=== PATIENT | female | born 1970 | race Two or more races ===

== ENCOUNTER → 2017-02-13 | Outpatient (CLI) | payer OTHER ==
--- NOTE | ~2017-02-13 | US98 ---
[facility] A Service of [facility] & [facility] RADIOLOGY TEXT RESULTS PATIENT: MONICO ALVES LOCATION: [facility] : 74 UNIT #: [id number] AGE: [address]: TONYA PERDUE APRN SEX: F ORDER DR: [id number] [facility] [address] [place], [place] [address] [id number] O MR#: [id number] Acc #: [id number] NAME: MONICO ALVES : 1970 SEX: F STUDY DATE/TIME: 02/13/2017 9:19 UNIT: [facility] ROOM: STUDY DESCRIPTION: US Pelvic Non-OB Complete Attending Physician: Dayana Perdue M.D. Referring Physician: Dayana Perdue M.D. Ordering Physician: Dayana Perdue M.D. Primary Care Physician: Celestino Deal M.D. MEDICAL IMAGING REPORT This report is preliminary unless electronic signature is present EXAM Transabdominal and transvaginal pelvic ultrasound 02/13/2017 HISTORY Pelvic pain primarily left side for 1 month with left lower quadrant abdominal pain and irregular menses, post menstrual pain. FINDINGS Transabdominal and transvaginal pelvic ultrasound was performed. Endovaginal ultrasound was performed for attempted better visualization of the adnexal structures. The bladder is normal in appearance. The uterus measures 8.9 cm craniocaudal x 3.7 cm AP x 5.9 cm transverse. The endometrial stripe measured 5 mm. Two fibroids are seen within the uterine body measuring a 1.7 cm and 5 mm respectively. The right ovary measured 1.5 cm x 1.6 cm x 7 mm while the left ovary measured 9 mm x 3 cm x 1.3 cm. Small follicles were seen on both ovaries. Color flow Doppler images show normal blood flow to both ovaries. There is no adnexal mass and there is no free fluid in the pelvis. IMPRESSION Leiomyomatous uterus. Otherwise negative pelvic ultrasound. Dictated by... Ottoniel Huggins M.D. THIS IS AN ELECTRONICALLY VERIFIED REPORT Ottoniel Huggins M.D. at 02/15/2017 8:22 AM ANDREIA/cj TD: 02/14/2017 18:57 JOB #: [id number] MEDICAL IMAGING REPORT [facility] A Service of [facility] & [facility] RADIOLOGY TEXT RESULTS PATIENT: MONICO ALVES LOCATION: [facility] : 74 UNIT #: [id number] AGE: [address]: TONYA PERDUE APRN SEX: F ORDER DR: Page 1 of 1 COPY
--- NOTE | ~2017-02-13 | MY11 ---
[facility] A Service of [facility] RADIOLOGY TEXT RESULTS PATIENT: MONICO ALVES LOCATION: [facility] : 74 UNIT #: [id number] AGE: [address]: TONYA PERDUE APRN SEX: F ORDER DR: [id number] [facility] [address] [place], [place] [address] [id number] O MR#: [id number] Acc #: [id number] NAME: MONICO ALVES : 1970 SEX: F STUDY DATE/TIME: 02/13/2017 9:53 UNIT: [facility] ROOM: STUDY DESCRIPTION: MY Mammogram Screening Dig [place] Attending Physician: Dayana Perdue M.D. Referring Physician: Dayana Perdue M.D. Ordering Physician: Dayana Perdue M.D. Primary Care Physician: Celestino Deal M.D. MEDICAL IMAGING REPORT This report is preliminary unless electronic signature is present EXAM Screening mammogram 02/13 INDICATIONS 46-year-old with no personal history but a positive family history of breast cancer. No current complaints. FINDINGS Routine digital screening views of both breasts were obtained. Study is reviewed with an FDA-approved CAD device. Comparison made with an outside prior study dated 11/03/2015 and left breast images from 11/18/2015. The breast parenchyma remains heterogeneously dense. No dominant masses or suspicious microcalcifications are seen. Benign calcifications in both breasts are not significantly changed. A biopsy marker is noted in the deep upper outer left breast. IMPRESSION Benign mammogram. Routine screen in 1 year is recommended. Patients over the age of 40 are entered into a reminder system with target due date for the next mammogram. A result letter will also be sent to the patient. BIRADS: 2, benign findings. Dictated by... North Atkinson Jr., M.D. THIS IS AN ELECTRONICALLY VERIFIED REPORT North Atkinson Jr., M.D. at 02/17/2017 10:13 AM RLK/rnr [facility] A Service of [facility] & [facility] RADIOLOGY TEXT RESULTS PATIENT: MONICO ALVES LOCATION: [facility] : 74 UNIT #: [id number] AGE: [address]: TONYA PERDUE APRN SEX: F ORDER DR: TD: 02/16/2017 16:33 JOB #: [id number] MEDICAL IMAGING REPORT Page 1 of 1 COPY
== END | disposition home or self-care (01) ==
LOC: CWCC 08:53
DX: Z12.31 Encounter for screening mammogram for malignant neoplasm of breast (principal); Z80.3 Family history of malignant neoplasm of breast; N91.2 Amenorrhea, unspecified; D25.9 Leiomyoma of uterus, unspecified
CPT/HCPCS: 76830; 76856; G0202